=== PATIENT | female | born 1985 | race Two or more races ===

== ENCOUNTER 2018-01-16 15:29 | Emergency (ER) | payer MEDICAID ==
[~2018-01-16] VITALS: Ht 154.9 cm; Wt 63.5 kg
[2018-01-16 15:46] VITALS: BP 114/75
== END 2018-01-16 16:46 | disposition home or self-care (01) ==
LOC: ER 15:33
DX: M79.641 Pain in right hand (principal); F12.90 Cannabis use, unspecified, uncomplicated
CPT/HCPCS: 73130

== ENCOUNTER 2019-07-15 10:22 | Emergency (ER) | payer MEDICAID ==
[~2019-07-15] VITALS: Ht 154.9 cm; Wt 63.5 kg
[2019-07-15 10:25] VITALS: BP 178/72
[2019-07-15] MEDS ORDERED: KETOROLAC TROMETH 60MG/2ML VIAL IM ONE (10:45)
== END 2019-07-15 11:16 | disposition home or self-care (01) ==
LOC: ER 10:22
DX: M54.41 Lumbago with sciatica, right side (principal)
CPT/HCPCS: 96372; 99283; J1885

== ENCOUNTER → 2019-09-29 | Emergency (ER) | payer MEDICAID ==
[~2019-09-29] VITALS: Ht 154.9 cm; Wt 63.5 kg
[~2019-09-29] MED LIST: KETOROLAC TROMETH 60MG/2ML VIAL IM ONE; methylPREDNISolone SOD SUCC 125 MG/2 ML VL IM ONE
[2019-09-29 18:02] VITALS: BP 121/50
== END | disposition home or self-care (01) ==
LOC: ER 17:46
DX: M54.16 Radiculopathy, lumbar region (principal); M54.41 Lumbago with sciatica, right side; Z87.440 Personal history of urinary (tract) infections
CPT/HCPCS: 96372; 99284; J1885; J2930; J7030

== ENCOUNTER 2024-07-05 12:43 | Emergency (ER) | payer MEDICAID ==
[~2024-07-05] VITALS: Ht 154.9 cm; Wt 73.8 kg
[~2024-07-05 12:43] MED LIST changes: +DIPH25CA66 PO; -KETOROLAC TROMETH 60MG/2ML VIAL IM ONE; -methylPREDNISolone SOD SUCC 125 MG/2 ML VL IM ONE
--- NOTE | 2024-07-05 13:27 | ED.PDOC ---
SOB-HPI HPI Comments 39 y.o female with PMHx of bronchitis, presents to the ED for a chief complaint of a chest congestion, diffuse chest pain when taking breaths and coughing, associated with SOB and a productive cough that started 3 days ago. Patient attempted to cough phlegm up but ended up vomiting and since has been unable to keep fluids down. Patient denies any fever, chills, abdominal pain. Patient reports tobacco use. Allergy to shellfish. Chief Complaint: Shortness of Breath Time Seen by MD: 13:20 Primary Care Provider: AMADA Gasca notes: Nurses Notes, Medications, Allergies Information Source: Patient Mode of Arrival: Ambulatory Severity: Moderate Timing: Days (3) Duration: Since onset Context: At Rest PE Risk Factors: None History of: None Associated Signs and Symptoms: Cough, Other (nausea and vomiting ) If cough with SOB: Productive Past Medical History PAST MEDICAL HISTORY: UTI'S Past Medical History (Other): Bronchitis Surgical History: Denies all surgeries [employer] History: No Pertinent [employer] History Family History Family History: Reviewed,noncontributory to illness, No family hx of DM Social History Smoker: Cigarettes Alcohol: Denies ETOH Use Drugs: Marijuana Lives In: Home Constitutional: denies: chills, diaphoresis, fatigue, fever, malaise, sweats, weakness, others EENTM: reports: nose congestion; denies: blurred vision, double vision, ear bleeding, ear discharge, ear drainage, ear pain, ear ringing, eye pain, eye redness, hearing loss, mouth pain, mouth swelling, nasal discharge, nose bleedi ng, nose pain, photophobia, tearing, throat pain, throat swelling, voice changes, others Respiratory: reports: cough, shortness of breath; denies: hemoptysis, orthopnea, SOB at rest, SOB with excertion, stridor, wheezing, others Cardiovascular: denies: chest pain, dizzy spells, diaphoresis, Dyspnea on exertion, edema, irregular heart beat, left arm pain, lightheadedness, palpitations, PND, syncope, others Gastrointestinal: reports: nausea, vomiting; denies: abdomen distended, abdominal pain, blood streaked bowels, constipated, diarrhea, dysphagia, difficulty swallowing, hematemesis, melena, poor appetite, poor fluid intake, rectal bleeding, rectal pain, others Genitourinary: denies: abnormal vagina bleeding, burning, dyspareunia, dysuria, flank pain, frequency, hematuria, incontinence, pain, , vagina discharge, urgency, others Neurological: denies: dizziness, fainting, headache, left sided numbness, left sided weakness, numbness, paresthesia, pre-existing deficit, right sided numbness, right sided weakness, seizure, speech problems, tingling, tremors, weakness, others Musculoskeletal: denies: back pain, gout, joint pain, joint swelling, muscle pain, muscle stiffness, neck pain, others Integumetry: denies: bruises, change in color, change in hair/nails, dryness, laceration, lesions, lumps, rash, wounds, others Allergic/Immunocompromised: denies: Difficulty Healing, Frequent Infections, Hives, Itching, others Hematologic/Lymphatic: denies: anemia, blood clots, easy bleeding, easy bruising, swollen glands, others Endocrine: denies: excessive hunger, excessive sweating, excessive thirst, excessive urination, flushing, intolerance to cold, intolerance to heat, unexplained weight gain, unexplained weight loss, others Psychiatric: denies: anxiety, bipolar disorder, depression, hopeless, panic disorder, schizophrenia, sleepless, suicidal, others All Other Systems: Reviewed and Negative Physical Exam General Appearance: No Apparent Distress HEENT: Other (Pupils and face symmetric. Moist mucous membranes.) Neck: Full Range of Motion, Normal Inspection Respiratory: Decreased Breath Sounds, No Accessory Muscle Use, Rhonchi Cardiovascular: No Edema, No JVD Breast Exam: Deferred Gastrointestinal: Non Tender, Soft Genitalia: Deferred Pelvic: Deferred Rectal: Deferred Extremities: Normal inspection, Normal range of motion, Non-tender, No pedal edema Neurologic: Alert (Oriented x4), Normal Affect, Normal Mood, Other (Ambulatory. No gross focal deficit.) Cerebellar Function: NOT DONE Reflexes: NOT DONE Skin: Dry, Normal Color, Warm Lymphatic: NOT DONE Was a procedure done? Was a procedure done?: No Differential Dx Differential Diagnosis: Bronchitis, CHF, COPD, Pneumonia, Respiratory Distress, URI X-Ray, Labs, Meds, VS Vital Signs Date Time Temp Pulse Resp B/P (MAP) Pulse Ox O2 Delivery O2 Flow Rate FiO2 07/05/24 15:53 16 95 Room Air* 0 21 07/05/24 15:53 95 Room Air* 0 21 07/05/24 15:48 77 18 92 Room Air* 0 21 07/05/24 15:48 77 18 125/76 (92) 92 07/05/24 13:35 18 91 Room Air* 0 21 07/05/24 12:54 98.5 91 18 123/93 (103) 92 98.5 Lab Test 07/05/24 15:43 07/05/24 14:40 07/05/24 13:40 Range/Units Influenza Type A Antigen Negative Negative Influenza Type B Antigen Negative Negative SARS-CoV-2 Antigen (Rapid) Negative NEGATIVE Troponin I High Sensitivity < 3 L < 3 L </=34 ng/L White Blood Count 10.4 4.4-10.8 10^3/uL Red Blood Count 5.06 4.0-5.20 10^6/uL Hemoglobin 15.5 12.2-16.2 g/dL Hematocrit 47.2 H 36.0-46.0 % Mean Corpuscular Volume 93.3 80.0-100.0 fL Mean Corpuscular Hemoglobin 30.6 28.0-32.0 pg Mean Corpuscular Hemoglobin Concent 32.8 32.0-36.0 g/dL Red Cell Distribution Width 13.5 11.8-14.3 % Platelet Count 295 140-450 10^3/uL Mean Platelet Volume 8.4 6.9-10.8 fL Neutrophils (%) (Auto) 77.8 37.0-80.0 % Lymphocytes (%) (Auto) 15.0 10.0-50.0 % Monocytes (%) (Auto) 4.6 0.0-12.0 % Eosinophils (%) (Auto) 2.0 0.0-7.0 % Basophils (%) (Auto) 0.6 0.0-2.0 % Neutrophils # (Auto) 8.1 1.6-8.6 10 ^3/uL Lymphocytes # (Auto) 1.6 0.4-5.4 10 ^3/uL Monocytes # (Auto) 0.5 0-1.3 10 ^3/uL Eosinophils # (Auto) 0.2 0-0.8 10 ^3/uL Basophils # (Auto) 0.1 0-0.2 10 ^3/uL Nucleated Red Blood Cells 0.0 % Sodium Level 140 136-145 mmol/L Potassium Level 3.9 3.5-5.1 mmol/L Chloride Level 106 98-107 mmol/L Carbon Dioxide Level 23 20-31 mmol/L Anion Gap 11 5-15 Blood Urea Nitrogen 11 9-23 mg/dL Creatinine 0.65 0.550-1.02 mg/dL Glomerular Filtration Rate Calc 114 >90 mL/min BUN/Creatinine Ratio 16.9 10.0-20.0 Serum Glucose 112 H 74-106 mg/dL Calcium Level 10.1 8.7-10.4 mg/dL B-Type Natriuretic Peptide 15.16 0-100 pg/mL Current Medications Medications (Trade) Dose Ordered Sig/Elizabeth Route Start Time Stop Time Status Last Admin Albuterol (Ventolin Medneb) 5 mg ONCE ONCE NEB 07/05/24 13:30 07/05/24 13:31 DC 07/05/24 15:55 Ipratropium [place] (Atrovent Medneb) 0.5 mg ONCE ONCE NEB 07/05/24 13:30 07/05/24 13:31 DC 07/05/24 15:55 Methylprednisolone Sodium Succinate (Solu Medrol) 125 mg ONCE ONCE IV 07/05/24 13:30 07/05/24 13:31 DC 07/05/24 15:48 Ondansetron HCl (Zofran) 4 mg ONCE ONCE IV 07/05/24 13:30 07/05/24 13:31 DC 07/05/24 15:48 Sodium Chloride 1,000 ml @ 1,000 mls/hr Q1H ONCE IV 07/05/24 13:30 07/05/24 14:29 DC 07/05/24 15:48 Ketorolac Tromethamine (Toradol Injection) 30 mg ONCE ONCE IV 07/05/24 13:30 07/05/24 13:31 DC 07/05/24 15:48 PROCEDURE(s): CXR1 - CHEST XRAY 1 VIEW REASON: SOB COUGH ORDER NUMBER(s): [id number], ACCESSION NUMBER(s): [id number] EXAM: XY CHEST XRAY 1 VIEW REASON FOR EXAM: SOB COUGH TECHNIQUE: 1 view of the chest COMPARISON: XY CHEST PORTABLE on DOS: 05/03/23 FINDINGS/IMPRESSION: LUNGS: No pleural effusion, consolidation, or pneumothorax.peribronchial cuffi ng, which may be infectious versus inflammatory bronchitis. MEDIASTINUM: Unremarkable BONES: No acute osseous abnormality OTHER: None X-Ray, Labs, Meds, VS Comment 39-year-old female with a history of bronchitis and tobacco use complaining of pleuritic chest pain, productive cough difficulty breathing Vitals remarkable for BP 123/93, oxygen saturation 92% on room air Rhythm strip independently interpreted by me: Sinus rhythm, rate 91, no ectopy. Chest x-ray FINDINGS/IMPRESSION: LUNGS: No pleural effusion, consolidation, or pneumothorax.peribronchial cuffing, which may be infectious versus inflammatory bronchitis. MEDIASTINUM: Unremarkable BONES: No acute osseous abnormality OTHER: None CBC, metabolic panel, BNP and troponins unremarkable for any abnormality of acute significance. Influenza and COVID negative Patient treated with the following in the ED: Albuterol 5 mg/Atrovent 0.5 mg nebulized, Solu-Medrol 125 mg IV, 1 L 0.9 normal saline IV bolus, Zofran 4 mg IV, Toradol 30 mg IV On re-evaluation, patient states her symptoms have improved. Vitals were stable. Oxygen saturation is normal on room air. Patient appears stable for discharge with close outpatient follow-up with her primary physician. Rx Augmentin, Zofran, ProAir, Tylenol, prednisone Time of 1ST Reevaluation: 13:24 Reevaluation 1ST: Unchanged Time of 2ND Reevaluation: 16:39 Reevaluation 2ND: Improved Patient Education/Counseling: Diagnosis, Treatment, Prognosis Family Education/Counseling: Diagnosis, Treatment, Prognosis Departure 1 Departure Time of Disposition: 16:39 Impression: Primary Impression: Bronchitis Additional Impression: Nausea and vomiting Qualified Codes: R11.2 - Nausea with vomiting, unspecified Disposition: HOME / SELF CARE / HOMELESS Condition: Stable Additional Instructions: Your blood tests were unremarkable. Your test for influenza and COVID were negative. Your chest x-ray showed bronchitis. I have prescribed antibiotics, an inhaler, pain medication and nausea medication. Follow-up with your primary doctor in 1-2 days. Return to ER for persistent or worsening symptoms. e-Prescriptions Prednisone (Prednisone) 20 Mg Tab 40 MG PO DAILY for 3 Days, #6 MG Prov: BA FRANCIS MD 07/05/24 Albuterol Sulfate (Albuterol Sulfate Hfa) 108 Mcg/Act Aer 2 PUFF IN Q4HP PRN, #1 AER Prov: BA FRANCIS MD 07/05/24 Acetaminophen (Tylenol Extra Strength) 500 Mg Tab 1000 MG PO Q6HP PRN, #30 TAB Prov: BA FRANCIS MD 07/05/24 Ondansetron Odt 4MG Tab (ZOFRAN PO) 4 Mg Tb 4 MG PO TID PRN, #30 TAB ODT TAB-DISSOLVE IN MOUTH, THEN SWALLOW Prov: BA FRANCIS MD 07/05/24 Amoxicillin & Pot Clavulanate (AUGMENTIN TABLET) 875 Mg Tb 875 MG PO BID for 10 Days, #20 TAB Prov: BA FRANCIS MD 07/05/24 Discharged With: Relative Critical Care Note Critical Care Time?: No Stability Stability form required: No I personally scribed for BA FRANCIS MD ([email or web address]) on 07/05/24 at 13:27. Electronically submitted by Noa Evangelista ([facility]). BA FRANCIS MD July 05, 2024 13:27
[2024-07-05 13:52] LABS: Basophils # (auto) 0.1 10 ^3/uL (0-0.2); Basophils % (auto) 0.6 % (0.0-2.0); Eosinophils # (auto) 0.2 10 ^3/uL (0-0.8); Hematocrit 47.2 % (36.0-46.0); Hemoglobin 15.5 g/dL (12.2-16.2); Lymphocytes # (auto) 1.6 10 ^3/uL (0.4-5.4); Mean Corpuscular Hemoglobin 30.6 pg (28.0-32.0); Mean Corpuscular Hgb Conc. 32.8 g/dL (32.0-36.0); Mean Corpuscular Volume 93.3 fL (80.0-100.0); Monocytes # (auto) 0.5 10 ^3/uL (0-1.3); Monocytes % (auto) 4.6 % (0.0-12.0); Neutrophils # (auto) 8.1 10 ^3/uL (1.6-8.6); Neutrophils % (auto) 77.8 % (37.0-80.0); Platelet Count (auto) 295 10^3/uL (140-450); Red Blood Cells 5.06 10^6/uL (4.0-5.20); Red Cell Distribution Width 13.5 % (11.8-14.3); White Blood Cell 10.4 10^3/uL (4.4-10.8)
--- NOTE | 2024-07-05 13:57 | DVH ---
EXAM: XY CHEST XRAY 1 VIEW REASON FOR EXAM: SOB COUGH TECHNIQUE: 1 view of the chest COMPARISON: XY CHEST PORTABLE on DOS: 05/03/23 FINDINGS/IMPRESSION: LUNGS: No pleural effusion, consolidation, or pneumothorax.peribronchial cuffing, which may be infect ious versus inflammatory bronchitis. MEDIASTINUM: Unremarkable BONES: No acute osseous abnormality OTHER: None
[2024-07-05 14:02] LABS: Chloride 106 mmol/L (98-107); Potassium 3.9 mmol/L (3.5-5.1); Sodium 140 mmol/L (136-145)
[2024-07-05 14:03] LABS: Anion Gap 11 (5-15); Calcium 10.1 mg/dL (8.7-10.4); Carbon Dioxide 23 mmol/L (20-31)
[2024-07-05 14:08] LABS: BUN/Creatinine Ratio 16.9 (10.0-20.0); Blood Urea Nitrogen 11 mg/dL (9-23)
[2024-07-05 14:09] LABS: Glucose 112 mg/dL (74-106)
[2024-07-05 15:48] VITALS: PULSE 77; RESP 18; O2SAT 92
[2024-07-05] MEDS: SODIUM CHLORIDE 0.9% 1,000 ML IV ONE (15:48)
[2024-07-05] MEDS: ONDANSETRON HCL 4 MG/2 ML VIAL IV ONE (15:48)
[2024-07-05] MEDS: methylPREDNISolone SOD SUCC 125 MG/2 ML VL IV ONE (15:48)
[2024-07-05] MEDS: KETOROLAC TROMETH 30 MG/ML 1ML VIAL IV ONE (15:48)
[2024-07-05] MEDS: IPRATROPIUM BROM 0.5 MG/2.5ML INH SOL NEB ONE (15:55)
[2024-07-05] MEDS: ALBUTEROL SULF 2.5 MG/0.5ML(0.5%) NEB SOLN NEB ONE (15:55)
[2024-07-05 16:26] LABS: COVID19 ANTIGEN SOFIA FIA NEGATIVE (NEGATIVE); Rapid Influenza A Negative (Negative); Rapid Influenza B Negative (Negative)
[2024-07-05] MEDS ORDERED: AUG875T PO (16:42)
[2024-07-05] MEDS ORDERED: ALBU108A5 IN (16:42)
[2024-07-05] MEDS ORDERED: ZOFR4T PO (16:42)
[2024-07-05] MEDS ORDERED: ACET-1304 PO (16:42)
[2024-07-05] MEDS ORDERED: PRED20TA2 PO (16:42)
[2024-07-05 17:04] VITALS: BP 133/98; PULSE 95; RESP 16; TEMP 98.5; O2SAT 95
== END 2024-07-05 17:07 | disposition home or self-care (01) ==
LOC: ER 12:43
DX: J40 Bronchitis, not specified as acute or chronic (principal); R11.2 Nausea with vomiting, unspecified; F17.210 Nicotine dependence, cigarettes, uncomplicated; Z20.822 Contact with and (suspected) exposure to COVID-19; Z87.440 Personal history of urinary (tract) infections; Z91.013 Allergy to seafood
CPT/HCPCS: 36415; 71045; 80048; 83880; 84484; 85025; 87426; 87804; 94640; 96361; 96374; 96375; 99284; J1885; J2405; J2919; J7030

== ENCOUNTER 2025-01-28 12:46 | Emergency (ER) | payer MEDICAID ==
[~2025-01-28] VITALS: Ht 154.9 cm; Wt 75.6 kg
[~2025-01-28 12:46] MED LIST changes: +ACET-1304 PO; +ALBU108A5 IN; +AUG875T PO; +PRED20TA2 PO; +ZOFR4T PO
--- NOTE | 2025-01-28 14:19 | ED.PDOC ---
SOB-HPI HPI Comments 39 y.o female with PMHx of bronchitis, presents to the ED for a chief complaint of SOB accompanied by congestion and a cough that started 3 days ago. Patient reports both SOB and cough worsen on exertion. She mentions similar symptoms present when diagnosed with bronchitis. She denies any nausea, vomiting, chest pain, palpitations, fever, chills. Chief Complaint: Cough Time Seen by MD: 13:56 Primary Care Provider: AMADA Gasca notes: Nurses Notes, Medications, Allergies Information Source: Patient Mode of Arrival: Ambulatory Severity: Moderate Timing: Days (3) Duration: Since onset Context: At Rest PE Risk Factors: None History of: Other (bronchitis ) Modifying Factors: Nothing Associated Signs and Symptoms: Cough, Nasal Congestion If cough with SOB: Productive Past Medical History PAST MEDICAL HISTORY: UTI'S Past Medical History (Other): Bronchitis Surgical History: Denies all surgeries [employer] History: No Pertinent [employer] History Family History Family History: Reviewed,noncontributory to illness, No family hx of DM Social History Smoker: Cigarettes Alcohol: Denies ETOH Use Drugs: Marijuana Lives In: Home Constitutional: denies: chills, diaphoresis, fatigue, fever, malaise, sweats, weakness, others EENTM: reports: nose congestion; denies: blurred vision, double vision, ear bleeding, ear discharge, ear drainage, ear pain, ear ringing, eye pain, eye redness, hearing loss, mouth pain, mouth swelling, nasal discharge, nose bleeding, nose pain, photophobia, tearing, throat pain, throat swelling, voice changes, others Respiratory: reports: cough, SOB at rest, shortness of breath, SOB with excertion; denies: hemoptysis, orthopnea, stridor, wheezing, others Cardiovascular: reports: Dyspnea on exertion; denies: chest pain, dizzy spells, diaphoresis, edema, irregular heart beat, left arm pain, lightheadedness, palpitations, PND, syncope, others Gastrointestinal: denies: abdomen distended, abdominal pain, blood streaked bowels, constipated, diarrhea, dysphagia, difficulty swallowing, hematemesis, melena, nausea, poor appetite, poor fluid intake, rectal bleeding, rectal pain, vomiting, others Genitourinary: denies: abnormal vagina bleeding, burning, dyspareunia, dysuria, flank pain, frequency, hematuria, incontinence, pain, , vagina discharge, urgency, others Neurological: denies: dizziness, fainting, headache, left sided numbness, left sided weakness, numbness, paresthesia, pre-existing deficit, right sided num bness, right sided weakness, seizure, speech problems, tingling, tremors, weakness, others Musculoskeletal: denies: back pain, gout, joint pain, joint swelling, muscle pain, muscle stiffness, neck pain, others Integumetry: denies: bruises, change in color, change in hair/nails, dryness, laceration, lesions, lumps, rash, wounds, others Allergic/Immunocompromised: denies: Difficulty Healing, Frequent Infections, Hives, Itching, others Hematologic/Lymphatic: denies: anemia, blood clots, easy bleeding, easy bruising, swollen glands, others Endocrine: denies: excessive hunger, excessive sweating, excessive thirst, excessive urination, flushing, intolerance to cold, intolerance to heat, unexplained weight gain, unexplained weight loss, others Psychiatric: denies: anxiety, bipolar disorder, depression, hopeless, panic disorder, schizophrenia, sleepless, suicidal, others All Other Systems: Reviewed and Negative Physical Exam General Appearance: Moderate Distress HEENT: Normal ENT Inspection, Pharynx Normal, TMs Normal Neck: Full Range of Motion, Non-Tender, Normal, Normal Inspection Respiratory: Chest Non-Tender, Lungs Clear, No Accessory Muscle Use, No Respiratory Distress, Normal Breath Sounds Cardiovascular: No Edema, No JVD, No Murmur, No Gallop, Normal Peripheral Pulses, Regular Rate/Rhythm Breast Exam: Deferred Gastrointestinal: No Organomegaly, Non Tender, No Pulsatile Mass, Normal Bowel Sounds, Soft Genitalia: Deferred Pelvic: Deferred Rectal: Deferred Extremities: No calf tenderness, Normal capillary refill, Normal inspection, Normal range of motion, Non-tender, No pedal edema Musculoskeletal : Apperance: Normal Neurologic: Alert, liquid floor and wall applier II-XII nml as Tested, No Motor Deficits, Normal Affect, Normal Mood, No Sensory Deficits Cerebellar Function: Normal Reflexes: Normal Skin: Dry, Normal Color, Warm Peripheral Pulses: 3+ Radial (R), 3+ Radial (L) Lymphatic: No Adenopathy Was a procedure done? Was a procedure done?: No Differential Dx Differential Diagnosis: Anxiety, Asthma, Bronchitis, Hyperventilation, Pneumonia, Respiratory Distress, URI X-Ray, Labs, Meds, VS Vital Signs Date Time Temp Pulse Resp B/P (MAP) Pulse Ox O2 Delivery O2 Flow Rate FiO2 01/28/25 12:47 97.6 87 18 147/95 96 97.6 Patient alert. Came in because of cough. Vitals stable. Answering questions. Possible pneumonitis. She was given prescription of prednisolone amoxicillin antibiotic. Clinical examination was sufficient. No leg swelling. No shortness a breath. Saturation pristine on room air. Heart rate within normal limits. Respiratory rate within normal limits. Counseled patient on effects of smoking cigarettes for 15 minutes. Explained to the patient. Was told to follow up with her primary care physician. Was told to come back if there is any problem. Time of 1ST Reevaluation: 14:16 Reevaluation 1ST: Unchanged Patient Education/Counseling: Diagnosis, Treatment, Prognosis Family Education/Counseling: No Family Present SEPSIS Sepsis Screen Date sepsis recognized/suspect: Jan 28, 2025 Time Sepsis recognized/suspect: 1249 Recent Procedure: No On Antibiotic Therapy: No Respiratory Rate >20: No Heart Rate >90: No Temp<36 C (96.8 F) or >38.3 C: No SBP <90 or MAP <65 mmHG: No New Acute Mental Status Change: No Is the patient on CPAP, BIPAP,: No Vital Signs Date Time Temp Pulse Resp B/P (MAP) Pulse Ox O2 Delivery O2 Flow Rate FiO2 01/28/25 12:47 97.6 87 18 147/95 96 97.6 Departure 1 Departure Time of Disposition: 14:34 Impression: Primary Impression: Pneumonitis Disposition: 01 HOME / SELF CARE / HOMELESS Condition: Good e-Prescriptions Fluconazole (Diflucan) 150 Mg Tab 1 TAB PO ONCE, #1 TAB 1 Refill Prov: GURDEEP NICOLE MD 01/28/25 Amoxicillin Trihydrate (Amoxicillin) 500 Mg Tab 1 TAB PO TID for 10 Days, #30 TAB Prov: GURDEEP NICOLE MD 01/28/25 Prednisone (Prednisone) 20 Mg Tab 20 MG PO BS for 5 Days, #5 MG Prov: GURDEEP NICOLE MD 01/28/25 Discharged With: Self Critical Care Note Critical Care Time?: No Stability Stability form required: No I personally scribed for GURDEEP NICOLE MD ([email or web address]) on 01/28/25 at 14:19. Electronically submitted by Noa Evangelista ([facility]). GURDEEP NICOLE MD Jan 28, 2025 14:19
[2025-01-28] MEDS ORDERED: AMOX500T3 PO (14:35)
[2025-01-28] MEDS ORDERED: PRED20TA2 PO (14:35)
[2025-01-28] MEDS ORDERED: FLUC150T38 PO (15:28)
[2025-01-28] MEDS: cefTRIAXone SOD 1,000 MG VL ONE (15:43)
[2025-01-28] MEDS: cefTRIAXone W LIDOCAINE 1 GM IM IM ONE (15:43)
[2025-01-28 15:55] VITALS: BP 132/83; PULSE 81; RESP 19; TEMP 98.1; O2SAT 95
== END 2025-01-28 16:15 | disposition home or self-care (01) ==
LOC: ER 12:46
DX: J98.4 Other disorders of lung (principal); F17.210 Nicotine dependence, cigarettes, uncomplicated; F12.90 Cannabis use, unspecified, uncomplicated; Z87.440 Personal history of urinary (tract) infections
CPT/HCPCS: 96372; 99283; J0696